=== PATIENT | male | born 1985 | race Caucasian/White ===

== ENCOUNTER 2021-02-25 01:20 | Emergency (ER) | payer OTHER, SELFPAY ==
[2021-02-25 01:41] VITALS: BP 170/103; PULSE 115; RESP 21; TEMP 37.2; O2SAT 96; BMI 36.6
--- NOTE | 2021-02-25 02:09 | XRR_ITS ---
PROCEDURE INFORMATION: Exam: XR Chest Exam date and time: 02/25/2021 2:09 AM Age: 36 years old Clinical indication: Cough TECHNIQUE: Imaging protocol: XR of the chest. Views: 1 view. COMPARISON: CR Chest 2 views* [id number] 09/19/2015 10:04 PM FINDINGS: Lungs: Unremarkable. No consolidation. Pleural spaces: Unremarkable. No pleural effusion. No pneumothorax. Heart/Mediastinum: Unremarkable. No cardiomegaly. Bones/joints: Unremarkable. XR/XR chest 1V portable [id number] IMPRESSION: No acute disease.
--- NOTE | 2021-02-25 02:09 | ECG_ITS ---
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 Measurements Intervals [place] Rate: 94 P: 56 CO: 143 QRS: 47 QRSD: 105 T: 60 QT: 349 QTc: 436 Interpretive Statements SINUS RHYTHM Compared to ECG 09/19/2015 21:05:28 Sinus tachycardia no longer present T-wave abnormality no longer present Electronically Signed On 02-26-2021 7:04:24 CDT by Sherine Oscar M.D. [id number]
--- NOTE | 2021-02-25 02:12 | W.ED.GENADLT ---
HPI - General Adult General: Chief complaint: General Medical Stated complaint: cough, high blood pressure Time Seen by Provider: 02/25/21 01:41 Source: patient Mode of arrival: ambulatory Limitations: no limitations History of Present Illness: HPI narrative: 36-year-old male states over the last 8 to 9 days has been having cough congestion nasal congestion sore throat. States also had some mild headaches and night sweats. He states he was tested for Covid over the weekend and it was negative he has not had much improvement. He states his main concern tonight was he checked his blood pressure it was in the 190s. He has no history of high blood pressure but states he has not seen a PCP in years. He denies any chest pain. Denies any worsening improving factors. Associated symptoms: Reports dyspnea; Deny chest pain, headache(s), nausea, rash or vomiting Review of Systems Const: Reports: night sweats Eyes: Denies: blurry vision or eye discomfort ENMT: Reports: throat pain Card: Denies: chest pain Resp: Reports: dyspnea and non-productive cough GI: Denies: abdominal pain, nausea, vomiting or diarrhea : Denies: dysuria Musc: Denies: neck pain or back pain Skin/Breast: Denies: rash Neuro: Denies: headache(s) Psych: Denies: depression Roque/Lymph: Denies: easy bruising All/Imm: Denies: urticaria Physical Exam Const: COMMON NORMALS: no acute distress, patient oriented x3 and healthy appearing HENMT: COMMON NORMALS: normocephalic and atraumatic HEAD & SCALP: normocephalic and atraumatic Eye: COMMON NORMALS: Equal, round and reactive pupils present and EOMs intact bilaterally PUPIL: Yes Equal, round and reactive pupils present Neck/C-Spine: COMMON NORMALS: full ROM and supple Chest: COMMONS NORMALS: normal inspection of the chest and normal palpation of entire chest wall Resp: COMMON NORMALS: normal respiratory effort, No retractions, No use of accessory muscles and clear to auscultation bilaterally AUSCULTATION: clear to auscultation bilaterally Cardio: COMMON NORMALS: regular rate, regular rhythm and No murmurs present (Cardio) RATE: regular rate RHYTHM: regular rhythm GI: COMMON NORMALS: Normal to inspection, nondistended, normoactive bowel sounds present, Soft to palpation, non-tender and no masses PALPATION: Yes Soft to palpation Extremity: COMMON NORMALS: normal to inspection and full ROM Neuro: COMMON NORMALS: patient oriented x3, moves all extremities and no focal motor deficits Psych: COMMON NORMALS: mental status grossly normal, Normal thought process present and cooperative THOUGHT PROCESS: Normal thought process present Skin: COMMON NORMALS: no rashes or lesions noted and no wounds GENERAL SKIN EXAM: no rashes or lesions noted Course Vital Signs: Vital signs: Vital Signs Temperature 98.9 F 02/25/21 01:41 Pulse Rate 96 02/25/21 03:42 Respiratory Rate 16 02/25/21 03:42 Blood Pressure 147/97 02/25/21 03:42 Pulse Oximetry 97 02/25/21 03:42 MDM - General Adult MDM Narrative: Medical decision making narrative: Patient presents here with complaints consistent with likely viral URI. He feels improved here and is x-ray and Covid are negative. Patient's blood pressure is improved as well. We will start him on lisinopril and he is to follow-up with a PCP. He is return if worsening. Lab Data: Labs: Lab Results 02/25/21 02/25/21 02/25/21 Range/Units 02:25 02:25 02:25 WBC 9.3 (4.0-10.0) 10^3/ uL RBC 5.31 H (4.1-5.3) 10^6/u L Hgb 15.8 (11.7-16.6) g/dL Hct 46.9 (42.0-52.0) % MCV 88.3 (80-94) fL MCH 29.8 (28.0-34.0) pg MCHC 33.7 (30.0-36.0) g/dL RDW 11.9 L (12.1-15.1) % Plt Count 237 (130-400) 10^3/c mm MPV 10.1 (7.4-10.4) fL Neut % (Auto) 79.2 % Lymph % (Auto) 14.6 % [place] % (Auto) 4.8 % Eos % (Auto) 0.3 % Baso % (Auto) 0.6 % Neut # (Auto) 7.37 (1.8-7.7) 10^3/u L Lymph # (Auto) 1.4 (0.8-4.8) 10^3/u L [place] # (Auto) 0.5 (0.2-0.9) 10^3/u L Eos # (Auto) 0.0 (0.0-0.8) 10^3/u L Baso # (Auto) 0.1 (0.0-0.1) 10^3/u L Nucleated RBC % (a uto) 0 % Nucleated RBCs # 0.0 /100WBC Sodium 137 (136-145) mmol/L Potassium 4.5 (3.5-5.1) mmol/L Chloride 103 (98-107) mmol/L Carbon Dioxide 22 (22-29) mmol/L Anion Gap 16.5 (5-19) BUN 11 (6-20) mg/dL Creatinine 0.6 L (0.7-1.2) mg/dL GFR Calculation 154.2 H (90-130) mL/min Glucose 113 (65-115) mg/dL Calculated Osmolal ity 284 L (285-295) mOsm/k g Calcium 9.2 (8.5-10.5) mg/dL Total Bilirubin 0.3 (0.15-1.2) mg/dL AST 35 (0-40) U/L ALT 67 H (0-41) U/L Alkaline Phosphata se 87 (40-130) IU/L NT-Pro-B Natriuret Pep 6 (0-125) pg/mL Total Protein 7.1 (6.6-8.7) g/dL Albumin 4.7 (3.5-5.2) g/dL Globulin 2.4 (1.3-4.6) g/dL SARS-CoV-2 Ag (Rap id) Negative (Negative) Imaging Data^: CXR: Attestation: I personally reviewed and interpreted this imaging study as follows: My impression: no acute abnormality EKG Data^: EKG 1: Attestation: I personally reviewed and interpreted this EKG as follows: EKG interpretation date: 02/25/21 EKG interpretation time: 02:42 Interpretation: nsr hr [address] or t wave abnormalities qrs 105 qtc 400 Discharge Plan Discharge Patient Disposition: Home Clinical Impression: Upper respiratory infection Qualifiers: URI type: unspecified URI Qualified Code(s): J06.9 - Acute upper respiratory infection, unspecified Hypertension Qualifiers: Hypertension type: unspecified Qualified Code(s): I10 - Essential (primary) hypertension Condition: Stable Prescriptions: New lisinopril 10 mg tablet 10 mg PO DAILY Qty: 30 RF: 0 Discharge Orders: Discharge ED (Routine); Ordered 02/25/21 Ordered By: Bella Mcadams Discharge Diet: Advance as tolerated Discharge Activity: Resume usual activity Patient Instructions: Upper Respiratory Infection (ED), Hypertension (ED) Coding Level of Care Code ED It Quality Assurance Analyst for Pradeep Fwd Exam Comprehensive
[2021-02-25] MEDS: sodium chloride 0.9% 1,000 ML 999 ML IV (02:35)
[2021-02-25] MEDS: ketorolac 30 mg/mL INJ IVP (02:35)
[2021-02-25] MEDS: labetalol 5 mg/mL SDV 20mL 10 MG IVP (02:37)
[2021-02-25 02:41] LABS: Basophils # 0.1 10^3/uL (0.0-0.1); Basophils % 0.6 %; Eosinophils % 0.3 %; Hematocrit 46.9 % (42.0-52.0); Hemoglobin 15.8 g/dL (11.7-16.6); Lymphocytes # 1.4 10^3/uL (0.8-4.8); Lymphocytes % 14.6 %; Mean Corpuscular HGB Conc 33.7 g/dL (30.0-36.0); Mean Corpuscular Hemoglobin 29.8 pg (28.0-34.0); Mean Corpuscular Volume 88.3 fL (80-94); Mean Platelet Volume 10.1 fL (7.4-10.4); Monocytes # 0.5 10^3/uL (0.2-0.9); Monocytes % 4.8 %; Neutrophils # 7.37 10^3/uL (1.8-7.7); Neutrophils % 79.2 %; Nucleated Red Blood Cells % 0 %; Platelet Count 237 10^3/cmm (130-400); Red Blood Count 5.31 10^6/uL (4.1-5.3); Red Cell Distribution Width 11.9 % (12.1-15.1); White Blood Count 9.3 10^3/uL (4.0-10.0)
[2021-02-25 02:57] LABS: Alanine Aminotransferase 67 U/L (0-41); Albumin Level 4.7 g/dL (3.5-5.2); Alkaline Phosphatase 87 IU/L (40-130); Blood Urea Nitrogen 11 mg/dL (6-20); Calcium 9.2 mg/dL (8.5-10.5); Carbon Dioxide 22 mmol/L (22-29); Chloride 103 mmol/L (98-107); Globulin 2.4 g/dL (1.3-4.6); Glomerular Filtration Rate 154.2 mL/min (90-130); Glucose 113 mg/dL (65-115); NT Pro B Type Natriuretic Pept 6 pg/mL (0-125); Osmolality Calculated 284 mOsm/kg (285-295); Sodium 137 mmol/L (136-145); Total Bilirubin 0.3 mg/dL (0.15-1.2); Total Protein 7.1 g/dL (6.6-8.7)
[2021-02-25 03:05] LABS: Anion Gap 16.5 (5-19); Aspartate Amino Transferase 35 U/L (0-40); Potassium 4.5 mmol/L (3.5-5.1)
[2021-02-25 03:09] VITALS: BP 151/104; PULSE 91; RESP 16; O2SAT 97
[2021-02-25 03:29] LABS: SARS Covid-2 Antigen Negative (Negative)
[2021-02-25 03:42] VITALS: BP 147/97; PULSE 96; RESP 16; O2SAT 97
--- NOTE | 2021-02-25 10:41 | PC.SOCIAL ---
Referral received to establish patient with PCP. Called patient and he indicates his is going to call and get him set up at [facility] and at this time he needs no assistance from CM/SS. Advised patient to call should this change and he have questions or would like assistance. He verbalized understanding.
== END 2021-02-25 03:43 | disposition home or self-care (01) ==
PROVIDERS: Emergency Provider Emergency Medicine
DX: J06.9 Acute upper respiratory infection, unspecified (principal); I10 Essential (primary) hypertension; U07.1 COVID-19
CPT/HCPCS: 71045; 80053; 83880; 85025; 87426; 93005; 96360; 96374; 96375; 99284; J1885; J3490; J7030

== ENCOUNTER 2023-02-04 10:55 | Outpatient (CLI) | payer OTHER, SELFPAY ==
--- NOTE | 2023-02-04 11:15 | XR_ITS ---
WS: [id number] Left elbow, 3 views, 02/04/2023 Clinical Data: left elbow pain Comparison: None. Findings: No fractures or dislocations are seen. The radial head is normal. The soft tissues are unremarkable. XR/XR elbow LT min 3V* [id number] Impression: Negative left elbow.
== END 2023-02-04 10:56 | disposition home or self-care (01) ==
PROVIDERS: PCP Family Medicine; Visit Provider Family Medicine
DX: M25.522 Pain in left elbow (principal)
CPT/HCPCS: 73080

== ENCOUNTER → 2023-02-08 08:23 | Outpatient (BNVA) | payer OTHER, SELFPAY | PROVIDERS: PCP Family Medicine; Visit Provider Family Medicine | DX: R79.89 Other specified abnormal findings of blood chemistry (principal); D75.1 Secondary polycythemia; I10 Essential (primary) hypertension | CPT/HCPCS: 80053; 80061; 84270; 84402; 84403; 85025 ==

== ENCOUNTER → 2024-10-01 14:21 | Outpatient (BNVA) | payer OTHER, SELFPAY | PROVIDERS: PCP Family Medicine; Visit Provider Family Medicine | DX: I10 Essential (primary) hypertension (principal); D75.1 Secondary polycythemia | CPT/HCPCS: 80053; 85025 ==

== ENCOUNTER → 2024-10-04 11:49 | Outpatient (BNVA) | payer OTHER, SELFPAY | PROVIDERS: PCP Family Medicine; Visit Provider Family Medicine | DX: D75.1 Secondary polycythemia (principal) | CPT/HCPCS: 82728; 83540 ==